=== PATIENT | male | born 1970 | race African-American/Black ===

== ENCOUNTER 2024-09-24 00:28 | Inpatient (IN) | payer OTHER ==
[2024-09-24 03:54] VITALS: BMI 32.2
[2024-09-24] MEDS ORDERED: Acetaminophen 325 MG TAB PO PRN (04:33)
[2024-09-24] MEDS: Ondansetron PF 4 MG/2 ML Vial IVP PRN (05:03)
[2024-09-24 06:05] LABS: ALT (SGPT) 22 U/L (Less than 45); AST (SGOT) 39 U/L (11-34); Albumin 4.2 g/dL (3.1-4.5); Alkaline Phosphatase 90 U/L (40-110); Anion Gap 16 mmol/L (10-20); BUN (Urea Nitrogen) 5 mg/dL (8.4-25.7); Bilirubin, Total 0.5 mg/dL (0.3-1.2); Calc. Creatinine Clearance 123 mL/min (70-130); Calcium 8.8 mg/dL (7.8-10.44); Carbon Dioxide 19 mmol/L (22-29); Chloride 105 mmol/L (98-107); Estimated GFR 95; Globulin 3.1 g/dL (2.4-3.5); Glucose 111 mg/dL (70-105); Potassium 4.1 mmol/L (3.5-5.1); Protein, Total 7.3 g/dL (6.0-8.3); Sodium 136 mmol/L (136-145)
[2024-09-24 06:09] LABS: #Basophils 0.03 10x3/uL (0.0-0.2); #Eosinophils Less than 0.03 10x3/uL (0.0-0.7); %Basophils 0.3 % (0.0-1.0); %Eosinophils 0.1 % (0.0-10.0); %Lymphocytes 12.1 % (21.0-51.0); %Monocytes 5.3 % (0.0-10.0); %Neutrophils 81.8 % (42.0-75.0); Hematocrit 43.7 % (42.0-52.0); Hemoglobin 13.7 g/dL (14.0-18.0); Mean Corpuscular HGB CONC 31.4 g/dL (32.0-36.0); Mean Corpuscular Hemoglobin 22.9 pg (27.0-31.0); Mean Platelet Volume 9.4 fL (7.4-10.4); Platelet Count 247 10x3/uL (130-400); RBC Distribution Width 15.3 % (11.5-14.5); Red Blood Cell (RBC) Count 5.99 mill/uL (4.70-6.10)
[2024-09-24] MEDS: Enoxaparin 40 MG (0.4 mL) SYRINGE SC SCH (08:45)
[2024-09-24] MEDS ORDERED: Calcium Carbonate 500 MG ChewTAB PO PRN (08:52)
[2024-09-24] MEDS ORDERED: Lorazepam 2 MG/ML VIAL SLOW IVP PRN (08:52)
[2024-09-24] MEDS ORDERED: Senokot S 8.6-50 MG TAB PO PRN (08:52)
[2024-09-24] MEDS ORDERED: Non-Formulary Item 1 EACH (Levetiracetam [Keppra] 750 MG Tablet) PO SCH (09:00)
[2024-09-24] MEDS: Aspirin 81 mg Enteric Coated Tablet PO SCH (11:32)
[2024-09-24] MEDS: levETIRAcetam 500 MG TAB PO SCH ×2 (11:32→19:36)
[2024-09-24] MEDS: Lisinopril 10 MG TAB PO SCH (11:32)
[2024-09-24] MEDS: Pantoprazole 40 MG DR.TAB PO SCH (11:32)
[2024-09-24] MEDS ORDERED: Labetalol HCl 100 MG/20 ML VIAL SLOW IVP PRN (20:32)
[2024-09-25 05:08] LABS: #Basophils 0.05 10x3/uL (0.0-0.2); %Basophils 0.6 % (0.0-1.0); %Eosinophils 1.2 % (0.0-10.0); %Lymphocytes 39.5 % (21.0-51.0); %Monocytes 6.9 % (0.0-10.0); %Neutrophils 51.6 % (42.0-75.0); Hematocrit 42.1 % (42.0-52.0); Hemoglobin 13.3 g/dL (14.0-18.0); Mean Corpuscular HGB CONC 31.6 g/dL (32.0-36.0); Mean Corpuscular Hemoglobin 23.1 pg (27.0-31.0); Mean Platelet Volume 9.4 fL (7.4-10.4); Platelet Count 259 10x3/uL (130-400); RBC Distribution Width 15.5 % (11.5-14.5); Red Blood Cell (RBC) Count 5.77 mill/uL (4.70-6.10)
[2024-09-25 05:36] LABS: ALT (SGPT) 26 U/L (Less than 45); AST (SGOT) 64 U/L (11-34); Albumin 3.9 g/dL (3.1-4.5); Alkaline Phosphatase 81 U/L (40-110); Anion Gap 14 mmol/L (10-20); BUN (Urea Nitrogen) 11 mg/dL (8.4-25.7); Bilirubin, Total 0.5 mg/dL (0.3-1.2); Calc. Creatinine Clearance 87 mL/min (70-130); Calcium 8.8 mg/dL (7.8-10.44); Carbon Dioxide 23 mmol/L (22-29); Chloride 107 mmol/L (98-107); Estimated GFR 63; Globulin 3.1 g/dL (2.4-3.5); Glucose 89 mg/dL (70-105); Potassium 3.7 mmol/L (3.5-5.1); Sodium 140 mmol/L (136-145)
[2024-09-25] MEDS: Amlodipine 10 MG TAB PO SCH (10:09)
[2024-09-26 05:27] LABS: #Basophils 0.04 10x3/uL (0.0-0.2); %Basophils 0.5 % (0.0-1.0); %Eosinophils 1.4 % (0.0-10.0); %Lymphocytes 38.2 % (21.0-51.0); %Monocytes 8.3 % (0.0-10.0); %Neutrophils 51.2 % (42.0-75.0); Hemoglobin 13.6 g/dL (14.0-18.0); Mean Corpuscular HGB CONC 31.6 g/dL (32.0-36.0); Mean Corpuscular Volume 72.8 fL (78.0-98.0); Platelet Count 238 10x3/uL (130-400); Red Blood Cell (RBC) Count 5.91 mill/uL (4.70-6.10)
[2024-09-26] MEDS: levETIRAcetam 500 MG TAB PO SCH ×2 (12:45→20:42)
[2024-09-26] MEDS ORDERED: Iopamidol 370 76% 100 ML VIAL ONE (13:54)
[2024-09-26] MEDS: Sodium Chloride 0.9% 1,000 ML IV SCH (14:52)
[2024-09-27 04:31] VITALS: TEMP 98
[2024-09-27 07:33] VITALS: BP 126/83
== END 2024-09-27 10:25 | disposition home or self-care (01) | DRG 65 ==
LOC: OBS 03:19 → OBSVTOIN 09-25 09:27
PROVIDERS: ADMIT Internal Medicine; ATTEND Hospitalist
PROC: 4A00X4Z Measurement of Central Nervous Electrical Activity, External Approach (ICD-10-PCS; principal; 2024-09-24)
DX: I60.9 Nontraumatic subarachnoid hemorrhage, unspecified (principal); N17.9 Acute kidney failure, unspecified; R56.9 Unspecified convulsions; I10 Essential (primary) hypertension; E78.5 Hyperlipidemia, unspecified; K21.9 Gastro-esophageal reflux disease without esophagitis; H91.90 Unspecified hearing loss, unspecified ear; Z86.73 Personal history of transient ischemic attack (TIA), and cerebral infarction without residual deficits
CPT/HCPCS: 36415; 70450; 70496; 70498; 70551; 80053; 85025; 87040; 95816; 95819; 96372; 96374; G0378; J1650; J2405; J7030